=== PATIENT | female | born 1990 | race American Indian/Alaskan Native ===

== ENCOUNTER 2017-08-19 05:42 | Inpatient (IN) | payer MEDICAID ==
[2017-08-19] MEDS ORDERED: Sodium Chloride 0.9% 10 ML Syringe FLUSH PRN (08:00)
[2017-08-19] MEDS ORDERED: Nalbuphine 20 MG/1 ML Amp IVPUSH PRN (08:00)
[2017-08-19] MEDS ORDERED: Lactated Ringers 1,000 ML IV ONE (08:00)
[2017-08-19] MEDS ORDERED: Ondansetron 4 MG/2 ML SDV IVPUSH PRN ×2 (08:00→08:17)
[2017-08-19] MEDS ORDERED: ePHEDrine 50 MG/ML SDV IVPUSH PRN (08:17)
[2017-08-19] MEDS ORDERED: fentaNYL 100 MCG/2 ML SDV EPIDUR PRN (08:17)
[2017-08-19] MEDS ORDERED: diphenhydrAMINE 50 MG/ML SDV IVPUSH PRN (08:17)
--- NOTE | 2017-08-19 08:24 | PCM.PREANE ---
Preanesthetic Assessment - Anesthesia/Transfusion/Family Hx Anesthesia History: Prior Anesthesia Without Reaction Family History of Anesthesia Reaction: No Transfusion History: No Prior Transfusion(s) - Review of Systems General: No Symptoms Pulmonary: No Symptoms Cardiovascular: No Symptoms Gastrointestinal: No Symptoms Neurological: No Symptoms Other: Reports: Diabetes (Type II Diabetic. Insulin coveraged during . ) - Physical Assessment Pulse: 97 O2 Sat by Pulse Oximetry: 99 Respiratory Rate: 18 Blood Pressure: 126/79 Temperature: 36.5 C Height: 1.73 m Weight: 129.818 kg ASA Class: 2 Mental Status: Alert & Oriented x3 Airway Class: Mallampati = 2 Dentition: Reports: Normal Dentition Thyro-Mental Finger Breadths: 2 Mouth Opening Finger Breadths: 3 ROM/Head Extension: Full Lungs: Clear to Auscultation, Normal Respiratory Effort Cardiovascular: Regular Rate, Regular Rhythm - Allergies Allergies/Adverse Reactions: Allergies Allergy/AdvReac Type Severity Reaction Status Date / Time oranges Allergy Rash Uncoded 08/19/17 06:52 - Acknowledgements Anesthesia Type Planned: Epidural Pt an Appropriate Candidate for the Planned Anesthesia: Yes Alternatives and Risks of Anesthesia Discussed w Pt/Guardian: Yes Pt/Guardian Understands and Agrees with Anesthesia Plan: Yes PreAnesthesia Questionnaire - HOME MEDS Home Medications: Home Meds Insulin Aspart [NovoLOG] 100 unit SUBCUT ACBED 08/19/17 [History] Insulin Detemir [Levemir] 100 unit SUBCUT ASDIRECTED 08/19/17 [History] Pnv No.122/Iron/Folic Acid [ Multi Tablet] 1 each PO DAILY 08/19/17 [ History] - CURRENT (IN HOUSE) MEDS Current Meds: Current Medications Insulin Human Regular 100 unit (/ Sodium Chloride) 100 mls @ 12.9 mls/hr IV TITRATE JOSELIN; 0.1 UNITS/KG/HR PRN Reason: Protocol Lactated Ringer's (Ringers, Lactated) 1,000 mls @ 40 mls/hr IV ASDIRECTED JOSELIN Lactated Ringer's (Ringers, Lactated) 1,000 mls @ 999 mls/hr IV .BOLUS ONE Stop: 08/19/17 09:00 Oxytocin/Lactated Ringer's (Pitocin In Lr 10 Units/1,000 Ml) 10 unit in 1,000 mls @ 12 mls/hr IV TITRATE JOSELIN; 2 MUNITS/MIN PRN Reason: Protocol Misoprostol (Cytotec) 25 mcg VAG Q3H JOSELIN Nalbuphine HCl (Nubain) 10 mg IVPUSH Q2H PRN PRN Reason: Pain Ondansetron HCl (Zofran) 4 mg IVPUSH Q4H PRN PRN Reason: Nausea Sodium Chloride (Saline Flush) 10 ml FLUSH ASDIRECTED PRN PRN Reason: Keep Vein Open
[2017-08-19] MEDS ORDERED: Sodium Chloride 0.9% 1,000 ML ONE (08:30)
--- NOTE | 2017-08-19 08:43 | PCM.LDHP ---
L&D History of Present Illness - General Date of Service: 08/19/17 Admit Problem/Dx: Admission Diagnosis/Problem Admission Diagnosis/Problem 08/19/17 08:25 37-6/7 week intrauterine , type 2 diabetes with insulin-dependence Source of Information: Patient History Limitations: Reports: No Limitations - History of Present Illness Introduction:: Deisi is a 27-year-old 1 para 0 female was admitted for medical induction of labor because of type 2 diabetes. Sinus to deliver her at 38-0/7 weeks. Her final SYED is 09/03/2017 placing her at 37-6/7 weeks today start of her induction. Suspected date of delivery will be tomorrow. Her cervix is 1-2 cm, 80 % effaced, -3 station, spell presentation, soft, mid position. Patient has taken her dose of Levemir insulin-25 units subcutaneous last evening. She has not taking any insulin this a.m. She ate her regular diabetic breakfast this a.m.. Baby has been active. No contractions noted. course. Patient was seen early in the course of her care at 12 -3/7 weeks. She had regular checkups throughout the course of [facility]. She had seen a community nutrition educator and size changer becomes worse type 2 diabetes. She presently is controlled on in sling in the form of Levemir 25 units subcutaneous at at bedtime and 5 units of NovoLog at lunchtime and at dinnertime. With this her blood sugars have been reasonably well controlled. Patient's weight gain during the course of [place] was from 244 pounds 257 pounds for a 13 pound weight gain. Her vital signs were stable throughout the course. Her fundal height growth was appropriate. Ultrasounds however have been showing that the baby is somewhat ahead of schedule as far as weight is concerned. Hemoglobin A1c has also been mildly elevated during the course of the . The patient's been evaluated with weekly biophysical profiles which have been normal. Patient's quad screen was negative. The PDS on 05/06/2017 was normal. She is group B strep negative. Patient plans to breast-feed. A Trichomonas infection early in and was treated. She has had 1 UTI during the course of . Laboratory testing and shows her blood to be B+. Antibody screen is positive. First labs showed hemoglobin 12.5 and and platelets of 315, 000. She is rubella immune. RPR is nonreactive. Patient did have equal and culture of the urine early on and was treated for this. Hepatitis B surface antigen and HIV assays were both negative. Chlamydia and gonorrhea both negative. Second trimester hemoglobin was 11.4 g deciliter and patient was started on iron therapy. Her platelets are 281,000. Group B strep screen was negative. Allergies: oranges which causes itching and rash Medications: 1. Levemir insulin 25 units subcutaneous daily at bedtime 2. NovoLog insulins 5 units subcutaneous at lunchtime and at dinnertime 3. vitamins 1 by mouth daily Past medical history: Type 2 diabetes. Past surgical history: Prep 1. Cholecystectomy 2010 2. Oral surgery 2004 Family history: Mother is alive and well. She has adult-onset diabetes mellitus and has bipolar doing reasonably well with both. Father is secondary to an [place] at age 45. He also had adult-onset diabetes mellitus. 2 brothers with unknown medical history. One sister is alive. Suffers from posttraumatic stress disorder. Maternal grandmother is alive and well. Maternal grandfather is alive , has bipolar disease and has had some type of cancer which patient does not know of the type. Paternal grandmother secondary to competitions O adult-onset diabetes mellitus. Paternal grandfather , questionable cause. No , anesthesia, bleeding or blood clotting problems noted in the family. Social history.: Patient is single, lives in [place]. She is a homemaker. She has some high school education. is [employer]. She does not use any significant loss of alcohol, drugs or tobacco. She previously has history of smoking. Review of systems: Skin: Negative Cardiovascular: No chest pain or exercise intolerance Respiratory: No shortness of breath or infectious symptoms Breasts: Changes positive GI: Negative : Changes positive including increased fundal height. Baby is been active. Musca skeletal: Negative Neurological: Negative Physical exam: At first visit height was 5 feet 8 inches, body mass index of 36.5 and weight was 244. Last evaluation clinic her weight was 257 pounds. Blood pressure 132/82, heart rate is 151 and fundal height is 39+ centimeters. In general patient is well-developed, well-nourished, overweight female in no acute distress. She is alert and oriented 3 and appears to be a reasonable historian. Skin is warm dry without lesions. HEENT, neck and back within normal limits. Lungs are clear with good breath sounds. Cardiovascular exam shows regular and rhythm without murmurs. Breast exam deferred have been done at first visit and found to be normal. Abdomen is protuberant with with fundal height of 39+ centimeters, baby in vertex presentation by Hao maneuvers. Cervix is as described above. Extremities show minimal edema Neurological exam grossly within normal limits. - Related Data Allergies/Adverse Reactions: Allergies Allergy/AdvReac Type Severity Reaction Status Date / Time oranges Allergy Rash Uncoded 08/19/17 06:52 Home Medications: Home Meds Insulin Aspart [NovoLOG] 100 unit SUBCUT ACBED 08/19/17 [History] Insulin Detemir [Levemir] 100 unit SUBCUT ASDIRECTED 08/19/17 [History] Pnv No.122/Iron/Folic Acid [ Multi Tablet] 1 each PO DAILY 08/19/17 [ History] H&P Review of Systems - Review of Systems: Review Of Systems: See Below L&D Exam - Exam Exam: See Below - Vital Signs Vital Signs: Last Vital Signs Temp 36.5 C 08/19/17 08:23 Pulse 97 08/19/17 08:23 Resp 18 08/19/17 08:23 BP 126/79 08/19/17 08:23 Pulse Ox 99 08/19/17 08:23 Weight: 129.818 kg Problem List Initiated/Reviewed/Updated: Yes Orders Last 24hrs: Active Orders 24 hr Category Date Time Status Communication Order [RC] ASDIRECTED Care 08/19/17 08:00 Ordered Communication Order [RC] ASDIRECTED Care 08/19/17 08:00 Ordered Communication Order [RC] ASDIRECTED Care 08/19/17 08:00 Ordered Monitoring [RC] INTERMITTENT Care 08/19/17 08:00 Ordered Local Anesthetic Infusion Pump [RC] ASDIRECTED Care 08/19/17 08:08 Ordered Notify Provider [RC] ASDIRECTED Care 08/19/17 08:00 Ordered Notify Provider [RC] ASDIRECTED Care 08/19/17 08:17 Active PCEA Epidural [RC] ASDIRECTED Care 08/19/17 08:08 Ordered Peripheral IV Care [RC] . DIRECTED Care 08/19/17 08:00 Ordered Up ad Telma [RC] ASDIRECTED Care 08/19/17 08:00 Ordered Vaginal Exam [RC] ASDIRECTED Care 08/19/17 08:00 Ordered Vital Signs [RC] ASDIRECTED Care 08/19/17 08:00 Ordered Consistent Carbohydrate Diet [DIET] Diet 08/19/17 Breakfast Ordered CBC WITH AUTO DIFF [HEME] Routine Lab 08/19/17 08:00 Ordered Bupivacaine/fentaNYL/NS [fentaNYL/Bupivacaine/NS 2 MCG- Med 08/19/17 08:30 Active 0.125% 100 ML] 100 ml EPIDUR ASDIRECTED Lactated Ringers [Ringers, Lactated] 1,000 ml Med 08/19/17 08:00 Ordered IV .BOLUS Lactated Ringers [Ringers, Lactated] 1,000 ml Med 08/19/17 08:00 Ordered IV ASDIRECTED Misoprostol [Cytotec] Med 08/19/17 08:00 Ordered 25 mcg VAG Q3H Nalbuphine [Nubain] Med 08/19/17 08:00 Ordered 10 mg IVPUSH Q2H PRN Ondansetron [Zofran] Med 08/19/17 08:17 Active 4 mg IVPUSH ONETIME PRN Ondansetron [Zofran] Med 08/19/17 08:00 Ordered 4 mg IVPUSH Q4H PRN Oxytocin/Lactated Ringers [Pitocin in LR 10 Units/1,000 Med 08/19/17 08:00 Ordered ML] 10 unit in 1,000 ml IV TITRATE Regular Insulin,Human 100 Units in Normal Saline @ 0.1 Med 08/19/17 08:00 Ordered Units/KG/HR Insulin Regular, Human [HumuLIN R] 100 unit Sodium Chloride 0.9% [Normal Saline] 99 ml IV TITRATE Sodium Chloride 0.9% [Saline Flush] Med 08/19/17 08:00 Ordered 10 ml FLUSH ASDIRECTED PRN diphenhydrAMINE [Benadryl] Med 08/19/17 08:17 Active 25 mg IVPUSH Q6H PRN ePHEDrine [ePHEDrine Sulfate] Med 08/19/17 08:17 Active 5 mg IVPUSH ASDIRECTED PRN fentaNYL [Sublimaze] Med 08/19/17 08:17 Active 100 mcg EPIDUR ONETIME PRN Epidural Catheter Management [OM.PC] Routine Oth 08/19/17 08:00 Ordered Peripheral IV Insertion Adult [OM.PC] Routine Oth 08/19/17 08:00 Ordered Medication Orders Diphenhydramine HCl (Benadryl) 25 mg IVPUSH Q6H PRN PRN Reason: Pruritis Ephedrine Sulfate (Ephedrine Sulfate) 5 mg IVPUSH ASDIRECTED PRN PRN Reason: Hypotension Fentanyl (Sublimaze) 100 mcg EPIDUR ONETIME PRN PRN Reason: Pain Fentanyl/Bupivacaine HCl (Fentanyl/Bupivacaine/Ns 2 Mcg-0.125% 100 Ml) 100 ml EPIDUR ASDIRECTED JOSELIN Insulin Human Regular 100 unit (/ Sodium Chloride) 100 mls @ 12.9 mls/hr IV TITRATE JOSELIN; 0.1 UNITS/KG/HR PRN Reason: Protocol Lactated Ringer's (Ringers, Lactated) 1,000 mls @ 40 mls/hr IV ASDIRECTED JOSELIN Lactated Ringer's (Ringers, Lactated) 1,000 mls @ 999 mls/hr IV .BOLUS ONE Stop: 08/19/17 09:00 Oxytocin/Lactated Ringer's (Pitocin In Lr 10 Units/1,000 Ml) 10 unit in 1,000 mls @ 12 mls/hr IV TITRATE JOSELIN; 2 MUNITS/MIN PRN Reason: Protocol Misoprostol (Cytotec) 25 mcg VAG Q3H JOSELIN Stop: 08/19/17 14:01 Nalbuphine HCl (Nubain) 10 mg IVPUSH Q2H PRN PRN Reason: Pain Ondansetron HCl (Zofran) 4 mg IVPUSH Q4H PRN PRN Reason: Nausea Ondansetron HCl (Zofran) 4 mg IVPUSH ONETIME PRN PRN Reason: Nausea/Vomiting Sodium Chloride (Saline Flush) 10 ml FLUSH ASDIRECTED PRN PRN Reason: Keep Vein Open Assessment/Plan Comment:: Assessment: 1. 37-6/7 week intrauterine admitted for initiation of induction of labor. Plan to deliver on 08/20/2017 at 38-0/7 weeks. 2. Type 2 diabetes on sling. Reasonably well-controlled with instrument and diet. 3. testing has been normal. Baby is running somewhat ahead of schedule size kaba. 4. Screen negative 5. Patient plans to breast-feed. 6. Patient is okay with epidural in labor. Plan: 1. Patient is taken for routine and some last evening and is eating breakfast this morning. We'll place her on incision drip per printed protocol. 2. Epidural when necessary 3. Anticipate normal spontaneous vaginal delivery 4. Cervical ripening with Cytotec 3 doses and will initiate Pitocin. 5. Intermittent monitoring. 6. CBC.
[2017-08-19] MEDS: Sodium Chloride 0.9% 1,000 ML IV SCH ×2 (08:53→18:10)
[2017-08-19] MEDS: Misoprostol 25 MCG (1/4 of 100 MCG) Tab VAG SCH ×3 (08:59→15:01)
[2017-08-19] MEDS: Lactated Ringers 1,000 ML IV SCH (16:23)
[2017-08-19] MEDS: Oxytocin/Lactated Ringers 10 UNIT/1,000 ML BAG IV SCH (16:32)
[2017-08-19] MEDS ORDERED: hydrOXYzine HCl 50 MG Tab PO ONE ×2 (21:33→21:45)
--- NOTE | 2017-08-20 03:41 | PCM.SN ---
- Free Text/Narrative Note: Ghazala was evaluated at 0330 hrs. on 08/20/2017 and was found to be dilated 2 cm /60% effaced/very soft/-3 but well applied to the cervix/artificial rupture membranes was undertaken with resultant clear amniotic fluid. heart tones are reassuring with good accelerations and good variability. Contractions are approximately every 3 minutes. Pitocin was at 10 mU/m. This represents a slight change in cervix. Patient's spirits are relatively good. She has not used anything for pain control at this time. Blood sugars have been within normal limits. She continues on the insulin drip per protocol. Plan: Continue with present plan, increased Pitocin as not certain. Consider intrauterine pressure catheter if no significant change in the next 2 hours.
[2017-08-20] MEDS: Sodium Chloride 0.9% 1,000 ML IV SCH ×2 (04:16→14:38)
[2017-08-20] MEDS: Bupivacaine/fentaNYL/NS 100 ML Bag EPIDUR SCH ×2 (08:52→16:25)
[2017-08-20] MEDS: Lactated Ringers 1,000 ML IV SCH (11:54)
[2017-08-20] MEDS: Oxytocin/Lactated Ringers 10 UNIT/1,000 ML BAG IV SCH (12:55)
[2017-08-20] MEDS ORDERED: Bupivacaine 0.25% 10 ML SDV ONE (14:00)
[2017-08-20] MEDS ORDERED: Oxytocin 10 Units/1 ML SDV ONE ×2 (14:19→17:49)
[2017-08-20] MEDS ORDERED: Oxytocin/Lactated Ringers 20 UNIT/1,000 ML BAG IV SCH (15:00)
[2017-08-20] MEDS ORDERED: Bupivacaine 0.5% 30 ML SDV ONE (17:39)
[2017-08-20] MEDS ORDERED: Ondansetron 4 MG/2 ML SDV ONE (17:49)
[2017-08-20] MEDS ORDERED: Sodium Bicarbonate 8.4% 50 MEQ/50 ML SDV ONE (17:49)
[2017-08-20] MEDS ORDERED: ceFAZolin 1 GM Vial ONE (17:49)
[2017-08-20] MEDS ORDERED: Lidocaine 2% with EPINEPHrine 1:200,000 20 ML SDV ONE (17:49)
[2017-08-20] MEDS ORDERED: Citric Acid/Sodium Citrate Solution 30 ML Cup ONE (17:53)
[2017-08-20] MEDS ORDERED: Metoclopramide 10 MG/2 ML SDV ONE (17:53)
--- NOTE | 2017-08-20 18:02 | PCM.SN ---
- Free Text/Narrative Note: Labor has progressed to a cervical dilation of 5/85/-3/mid/soft cervical status despite objectively monitored adequate labor. No cervical change noted in the last four hours. Rec: primary [id number], benefits d/w patient. She appears to understand and wishes to proceed. Consent is signed.
[2017-08-20] MEDS ORDERED: fentaNYL 100 MCG/2 ML SDV IVPUSH PRN (18:35)
[2017-08-20] MEDS ORDERED: diphenhydrAMINE 50 MG/ML SDV IVPUSH PRN ×2 (18:35→20:21)
[2017-08-20] MEDS ORDERED: Meperidine PF 50 MG/ML Syringe IVPUSH PRN (18:35)
[2017-08-20] MEDS ORDERED: Ondansetron 4 MG/2 ML SDV IVPUSH PRN (18:35)
[2017-08-20] MEDS ORDERED: Morphine PF 1 MG/ML Amp ONE (18:40)
[2017-08-20] MEDS ORDERED: Ketorolac 30 MG/ML SDV ONE (18:55)
--- NOTE | 2017-08-20 19:01 | PCM.POSTAN ---
POST ANESTHESIA ASSESSMENT - MENTAL STATUS Mental Status: Alert, Oriented - VITAL SIGNS Pulse Rate: 91 SaO2: 100 Resp Rate: 16 Blood Pressure: 125/71 Temperature: 37.1 C - RESPIRATORY Respiratory Status: Respiratory Rate WNL, Airway Patent, O2 Saturation Stable - CARDIOVASCULAR CV Status: Pulse Rate WNL, Blood Pressure Stable - GASTROINTESTINAL GI Status: No Symptoms - PAIN Pain Score: 0 - POST OP HYDRATION Hydration Status: Adequate & Stable
--- NOTE | 2017-08-20 19:07 | PCM.OPNOTE ---
- General Post-Op/Procedure Note Date of Surgery/Procedure: 08/20/17 Operative Procedure(s): Primary lower uterine segment transverse section through Pfannenstiel skin incision Findings: baby was in vertex presentation, amniotic fluid was clear. Ovaries and tubes were essentially normal in appearance Pre Op Diagnosis: 30-0/7 week IUP, adult-onset diabetesinsulin-dependent controlled, failure to progress Post-Op Diagnosis: Same with delivery of an 8 lbs. 7 oz. male with Apgars of 9 and 9 at 1818 hrs. on 08/20/2017 Anesthesia Technique: Epidural Other Anesthesia Type: Marcaine 0.5%local20 mL total Primary Surgeon: Robles Andres Secondary Surgeon: Abdi Apple Anesthesia Provider: Ivan Haddad Reason Critical Care Paramedic Was Necessary: Retraction, patient safety, quality of care Role of Critical Care Paramedic: retraction Fluid Replacement, Intraop: 900 Output, Urine Amount: 100 EBL in mLs: 500 Drain/Tube Comments:: indwelling bladder catheter Complications: None Condition: Good Free Text/Narrative:: Intake & Output 08/20/17 08/20/17 08/20/17 06:59 14:59 22:59 Intake Total 1000 Balance 1000 surgery duration: 20 minutes Procedure: Procedure: Patient was transferred to the room and placed in a sitting position. Spinal anesthesia was administered. After confirmation of adequate anesthesia patient was placed in a supine position with a wedge under her right side to facilitate left lateral positioning. The patient was prepped and draped in usual fashion after Davila catheter was already placed . The anesthetic was checked and found to be adequate. 20 mL of Marcaine 0.5% was injected locally in the Pfannenstiel incision site. The Pfannenstiel skin incision was then made carried down to skin subcutaneous and fascial layers. The fascia was then undermined superiorly and inferiorly to allow for adequate operating room the recti muscles midline and preperitoneal fat was bluntly dissected. Peritoneal cavity was entered longitudinally. The vesicouterine peritoneum was then incised transversely and bladder flap was developed. Myometrium was incised transversely to the level of the amniotic sac. This incision was extended bilaterally in a blunt fashion. The amniotic sac was then ruptured resulting clear amniotic fluid. A hand is placed in the low uterine segment and the baby's head was brought forth through the incision. The baby was completely delivered using fundal pressure in a routine fashion. The nose and mouth were bulb suctioned. Baby's cord was clamped x2 cut and baby was handed off to attending senior clinical research associate Dr Johnson. Placenta was expressed after cord blood was obtained. Uterus was then exteriorized to allow for easier closure. The cervix was assessed and found to be dilated adequately to allow egress of blood. The uterus was closed in 2 layers. The first layer a running locked suture of 0 Monocryl, the second layer a running locked vertical mattress suture of 0 Monocryl. [id number] suture was placed at the left incision to control 1 bleeder. Hemostasis confirmed at this time. Sponge instrument needle counts are correct. The uterus was returned to the abdominal cavity and lateral gutters were cleared of blood. Once again sponge needle counts are correct. The anterior abdominal wall was closed with a #1 PDS suture from angle to angle. The subcutaneous area was found to be free of any bleeders. interrupted sutures of 3-0 Monocryl were used to reapproximate the subcutaneous layer.Skin was closed with a running subcuticular stitch of 3-0 Monocryl in a vertical mattress suture fashion using a Robbin needle. Prineo mesh /glue was then applied to further approximate the incision. It should be noted that patient received 2 g of Ancef preoperatively for infection prophylaxis and had Pitocin infused after delivery of the placenta to facilitate uterine contraction. She also had sequential compression stockings in place for DVT prophylaxis. Patient was discharged from the operating room in satisfactory condition.
[2017-08-20] MEDS ORDERED: Ibuprofen 800 MG Tab PO SCH (20:21)
[2017-08-20] MEDS ORDERED: ePHEDrine 50 MG/ML SDV IVPUSH PRN (20:21)
[2017-08-20] MEDS ORDERED: Docusate Sodium 100 MG Cap PO PRN (20:21)
[2017-08-20] MEDS ORDERED: Lanolin 100% Cream 7 GM Tube TOP PRN (20:21)
[2017-08-20] MEDS ORDERED: Dextrose 5%-Lactated Ringers 1,000 ML IV SCH (20:21)
[2017-08-20] MEDS ORDERED: Naloxone 0.4 MG/ML SDV IVPUSH PRN (20:21)
[2017-08-20] MEDS: Simethicone 80 MG Tab.Chew PO SCH (23:35)
[2017-08-20] MEDS: Insulin Detemir 100 Units/ML 3 ML Pen SUBCUT SCH (23:47)
[2017-08-21] MEDS: Ibuprofen 800 MG Tab PO SCH ×3 (00:52→16:30)
[2017-08-21] MEDS: Simethicone 80 MG Tab.Chew PO SCH ×4 (08:01→21:18)
[2017-08-21] MEDS: Prenatal Multivitamin with Calcium/Folic Acid/Iron Tab PO SCH (08:01)
--- NOTE | 2017-08-21 10:32 | PCM.SN ---
- Free Text/Narrative Note: Post Operative Progress Note POD # 1 Subjective: Doing well overall. Ambulating without difficulty. Lochia minimal. Full ear removed this morning with drainage of urine. Patient has not voided since removal. Not yet passing flatus. Tolerating carb control diet. Pain controlled with oral medications. Breast feeding with minimal difficulty. Objective: Vitals: Vital Signs - 24 hr 08/20/17 08/20/17 08/20/17 18:48 19:00 19:01 Temperature 37.1 C Temperature [ 37.1 C Temporal] Pulse, 91 Peripheral Pulse, Peripheral [ Pulse Oximetry] Respiratory 16 14 16 Rate Blood Pressure 125/71 Blood Pressure 125/71 126/69 [Right Upper Arm] O2 Sat by Pulse 100 97 100 Oximetry O2 Sat by Pulse 100 Oximetry [Room Air] 08/20/17 08/20/17 08/20/17 19:15 19:30 20:20 Temperature Temperature [ 36.2 C Temporal] Pulse, Peripheral Pulse, 95 Peripheral [ Pulse Oximetry] Respiratory 16 16 16 Rate Blood Pressure Blood Pressure 128/66 130/71 134/69 [Right Upper Arm] O2 Sat by Pulse 97 98 97 Oximetry O2 Sat by Pulse Oximetry [Room Air] 08/20/17 08/20/17 08/20/17 20:45 21:45 22:02 Temperature Temperature [ 36.5 C 36.4 C Temporal] Pulse, 102 H Peripheral Pulse, 106 H 98 Peripheral [ Pulse Oximetry] Respiratory 16 16 Rate Blood Pressure Blood Pressure 139/84 128/70 [Right Upper Arm] O2 Sat by Pulse 96 96 96 Oximetry O2 Sat by Pulse Oximetry [Room Air] 08/20/17 08/21/17 08/21/17 22:45 00:30 04:47 Temperature Temperature [ 36.6 C 36.7 C Temporal] Pulse, 91 Peripheral Pulse, 98 95 Peripheral [ Pulse Oximetry] Respiratory 16 16 16 Rate Blood Pressure 128/73 Blood Pressure 122/70 133/70 [Right Upper Arm] O2 Sat by Pulse 95 98 98 Oximetry O2 Sat by Pulse Oximetry [Room Air] 08/21/17 08/21/17 08/21/17 05:26 06:36 08:33 Temperature 37.0 C Temperature [ Temporal] Pulse, 94 Peripheral Pulse, Peripheral [ Pulse Oximetry] Respiratory 18 18 16 Rate Blood Pressure 121/67 Blood Pressure [Right Upper Arm] O2 Sat by Pulse 98 98 97 Oximetry O2 Sat by Pulse Oximetry [Room Air] 08/21/17 09:00 Temperature Temperature [ Temporal] Pulse, Peripheral Pulse, Peripheral [ Pulse Oximetry] Respiratory 16 Rate Blood Pressure Blood Pressure [Right Upper Arm] O2 Sat by Pulse 98 Oximetry O2 Sat by Pulse Oximetry [Room Air] Physical Exam General: Alert and oriented, no acute distress Lungs: Clear to auscultation bilaterally Heart: Regular rate and rhythm Abdomen: Soft, minimal appropriate tenderness, non-distended, fundus midline, nontender and below the umbilicus Incision: Clean, dry and intact, no erythema, bleeding or drainage, Prineo dressing in place Extremities: 2+ edema in bilateral lower extremities to knees Labs: Laboratory Results - last 24 hr 08/19/17 08/20/17 08/20/17 Range/Units 08:27 11:03 12:01 WBC (3.98-10.04) K/mm3 RBC (3.98-5.22) M/mm3 Hgb (11.2-15.7) gm/L Hct (34.1-44.9) % MCV (79.4-94.8) fl MCH (25.6-32.2) pg MCHC (32.2-35.5) g/dl RDW Std Deviation (36.4-46.3) fL Plt Count (182-369) K/mm3 MPV (9.4-12.3) fl Neut % (Auto) (34.0-71.1) % Lymph % (Auto) (19.3-51.7) % [place] % (Auto) (4.7-12.5) % Eos % (Auto) (0.7-5.8) Baso % (Auto) (0.1-1.2) % Neut # (Auto) (1.56-6.13) K/mm3 Lymph # (Auto) (1.18-3.74) K/mm3 [place] # (Auto) (0.24-0.36) K/mm3 Eos # (Auto) (0.04-0.36) K/mm3 Baso # (Auto) (0.01-0.08) K/mm3 POC Glucose 166 H 141 H (70-105) mg/dL Blood Type B POSITIVE Gel Antibody Screen Negative 08/20/17 08/20/17 08/20/17 Range/Units 12:57 13:53 14:59 WBC (3.98-10.04) K/mm3 RBC (3.98-5.22) M/mm3 Hgb (11.2-15.7) gm/L Hct (34.1-44.9) % MCV (79.4-94.8) fl MCH (25.6-32.2) pg MCHC (32.2-35.5) g/dl RDW Std Deviation (36.4-46.3) fL Plt Count (182-369) K/mm3 MPV (9.4-12.3) fl Neut % (Auto) (34.0-71.1) % Lymph % (Auto) (19.3-51.7) % [place] % (Auto) (4.7-12.5) % Eos % (Auto) (0.7-5.8) Baso % (Auto) (0.1-1.2) % Neut # (Auto) (1.56-6.13) K/mm3 Lymph # (Auto) (1.18-3.74) K/mm3 [place] # (Auto) (0.24-0.36) K/mm3 Eos # (Auto) (0.04-0.36) K/mm3 Baso # (Auto) (0.01-0.08) K/mm3 POC Glucose 106 H 84 76 (70-105) mg/dL Blood Type Gel Antibody Screen 08/20/17 08/20/17 08/20/17 Range/Units 15:57 17:15 18:58 WBC (3.98-10.04) K/mm3 RBC (3.98-5.22) M/mm3 Hgb (11.2-15.7) gm/L Hct (34.1-44.9) % MCV (79.4-94.8) fl MCH (25.6-32.2) pg MCHC (32.2-35.5) g/dl RDW Std Deviation (36.4-46.3) fL Plt Count (182-369) K/mm3 MPV (9.4-12.3) fl Neut % (Auto) (34.0-71.1) % Lymph % (Auto) (19.3-51.7) % [place] % (Auto) (4.7-12.5) % Eos % (Auto) (0.7-5.8) Baso % (Auto) (0.1-1.2) % Neut # (Auto) (1.56-6.13) K/mm3 Lymph # (Auto) (1.18-3.74) K/mm3 [place] # (Auto) (0.24-0.36) K/mm3 Eos # (Auto) (0.04-0.36) K/mm3 Baso # (Auto) (0.01-0.08) K/mm3 POC Glucose 92 107 H 133 H (70-105) mg/dL Blood Type Gel Antibody Screen 08/20/17 08/21/17 08/21/17 Range/Units 21:55 00:33 06:10 WBC 10.32 H (3.98-10.04) K/mm3 RBC 3.38 L (3.98-5.22) M/mm3 Hgb 9.3 L (11.2-15.7) gm/L Hct 28.5 L (34.1-44.9) % MCV 84.3 (79.4-94.8) fl MCH 27.5 (25.6-32.2) pg MCHC 32.6 (32.2-35.5) g/dl RDW Std Deviation 40.2 (36.4-46.3) fL Plt Count 248 (182-369) K/mm3 MPV 10.6 (9.4-12.3) fl Neut % (Auto) 74.8 H (34.0-71.1) % Lymph % (Auto) 13.2 L (19.3-51.7) % [place] % (Auto) 10.3 (4.7-12.5) % Eos % (Auto) 1.3 (0.7-5.8) Baso % (Auto) 0.2 (0.1-1.2) % Neut # (Auto) 7.73 H (1.56-6.13) K/mm3 Lymph # (Auto) 1.36 (1.18-3.74) K/mm3 [place] # (Auto) 1.06 H (0.24-0.36) K/mm3 Eos # (Auto) 0.13 (0.04-0.36) K/mm3 Baso # (Auto) 0.02 (0.01-0.08) K/mm3 POC Glucose 117 H 110 H (70-105) mg/dL Blood Type Gel Antibody Screen 08/21/17 Range/Units 06:27 WBC (3.98-10.04) K/mm3 RBC (3.98-5.22) M/mm3 Hgb (11.2-15.7) gm/L Hct (34.1-44.9) % MCV (79.4-94.8) fl MCH (25.6-32.2) pg MCHC (32.2-35.5) g/dl RDW Std Deviation (36.4-46.3) fL Plt Count (182-369) K/mm3 MPV (9.4-12.3) fl Neut % (Auto) (34.0-71.1) % Lymph % (Auto) (19.3-51.7) % [place] % (Auto) (4.7-12.5) % Eos % (Auto) (0.7-5.8) Baso % (Auto) (0.1-1.2) % Neut # (Auto) (1.56-6.13) K/mm3 Lymph # (Auto) (1.18-3.74) K/mm3 [place] # (Auto) (0.24-0.36) K/mm3 Eos # (Auto) (0.04-0.36) K/mm3 Baso # (Auto) (0.01-0.08) K/mm3 POC Glucose 90 (70-105) mg/dL Blood Type Gel Antibody Screen ASSESSMENT: 27-year-old female G 1 P 1001 s/p primary section POD #1 for failure to progress, complicated by type 2 diabetes controlled with insulin PLAN: Doing well Breast feeding with minimal difficulty. Assist as needed Incision healing well. Continue to keep clean and dry. Lochia minimal. Continue to monitor for appropriate lochia. Large an expected drop in hemoglobin from 11.9 on admission to 9.3 this morning. Vital signs overall reassuring but we will recheck CBC at 1300 today to ensure stable hemoglobin. Continue routine post-operative care Continue carb control diet and monitor fingerstick blood sugars fasting in a.m. and 2 hours post prandial. We will continue Levemir insulin 12 units subcutaneous daily at bedtime for control of her blood sugars. Patient was on low-dose short acting insulin with lunch and supper meals and this has been discontinued. Fasting blood sugar this morning was 90 which is good control. We will continue to monitor during her admission. Anticipate discharge home tomorrow Abdi Apple MD 10:24 AM 08/21/2017
[2017-08-21] MEDS: Insulin Detemir 100 Units/ML 3 ML Pen SUBCUT SCH (21:30)
[2017-08-22] MEDS: Acetaminophen/oxyCODONE 325-5 MG Tab PO PRN ×2 (00:22→04:39)
[2017-08-22] MEDS: Ibuprofen 800 MG Tab PO SCH ×2 (01:17→08:12)
[2017-08-22] MEDS: Prenatal Multivitamin with Calcium/Folic Acid/Iron Tab PO SCH (08:11)
[2017-08-22] MEDS: Simethicone 80 MG Tab.Chew PO SCH (08:11)
--- NOTE | 2017-08-22 08:24 | PCM.SN ---
- Free Text/Narrative Note: Post Operative Progress Note POD # 2 Subjective: Doing well overall. Ambulating without difficulty. Lochia minimal. Voiding without difficulty. Patient has not voided since removal. Passing flatus and had a BM. Tolerating carb control diet. Pain controlled with oral medications. Bottle feeding with minimal difficulty after change in formula. Objective: Vitals: Vital Signs - 24 hr 08/21/17 08/21/17 08/21/17 09:00 09:22 10:00 Temperature Pulse, 95 Peripheral Respiratory 16 16 Rate Blood Pressure O2 Sat by Pulse 98 99 99 Oximetry 08/21/17 08/21/17 08/21/17 10:55 12:00 13:00 Temperature Pulse, Peripheral Respiratory 16 16 16 Rate Blood Pressure O2 Sat by Pulse 99 99 99 Oximetry 08/21/17 08/21/17 08/21/17 14:00 15:00 16:00 Temperature Pulse, Peripheral Respiratory 16 16 16 Rate Blood Pressure O2 Sat by Pulse 100 99 97 Oximetry 08/21/17 08/21/17 08/22/17 17:00 19:41 03:06 Temperature 36.7 C 36.7 C Pulse, 102 H 103 H Peripheral Respiratory 16 18 18 Rate Blood Pressure 134/78 115/90 O2 Sat by Pulse 99 99 95 Oximetry Physical Exam General: Alert and oriented, no acute distress Lungs: Clear to auscultation bilaterally Heart: Regular rate and rhythm Abdomen: Soft, minimal appropriate tenderness, non-distended, fundus midline, nontender and below the umbilicus Incision: Clean, dry and intact, no erythema, bleeding or drainage, Prineo dressing in place Extremities: 2+ edema in bilateral lower extremities to knees Labs: Laboratory Results - last 24 hr 08/21/17 08/21/17 08/21/17 Range/Units 10:50 13:00 15:23 WBC 10.14 H (3.98-10.04) K/mm3 RBC 3.33 L (3.98-5.22) M/mm3 Hgb 9.2 L (11.2-15.7) gm/L Hct 28.3 L (34.1-44.9) % MCV 85.0 (79.4-94.8) fl MCH 27.6 (25.6-32.2) pg MCHC 32.5 (32.2-35.5) g/dl RDW Std Deviation 41.2 (36.4-46.3) fL Plt Count 247 (182-369) K/mm3 MPV 10.1 (9.4-12.3) fl POC Glucose 136 H 114 H (70-105) mg/dL 08/21/17 08/22/17 Range/Units 21:21 05:27 WBC (3.98-10.04) K/mm3 RBC (3.98-5.22) M/mm3 Hgb (11.2-15.7) gm/L Hct (34.1-44.9) % MCV (79.4-94.8) fl MCH (25.6-32.2) pg MCHC (32.2-35.5) g/dl RDW Std Deviation (36.4-46.3) fL Plt Count (182-369) K/mm3 MPV (9.4-12.3) fl POC Glucose 162 H 109 H (70-105) mg/dL ASSESSMENT: 27-year-old female G 1 P 1001 s/p primary section POD #2 for failure to progress, complicated by type 2 diabetes controlled with insulin PLAN: Doing well Bottle feeding with minimal difficulty after change of formula. Assist as needed Incision healing well. Continue to keep clean and dry. Lochia minimal. Continue to monitor for appropriate lochia. Larger than expected drop in hemoglobin from 11.9 on admission to 9.3 in AM of POD #1, repeat CBC in afternoon of POD #1 was 9.2 and felt to be stable. Vital signs overall reassuring. Patient to start ferrous sulfate 325 mg twice a day with meals to help replace blood loss. Continue routine post-operative care Continue carb control diet and monitor fingerstick blood sugars fasting in a.m. and 2 hours post prandial. We will continue Levemir insulin 12 units subcutaneous daily at bedtime for control of her blood sugars. Patient was on low-dose short acting insulin with lunch and supper meals and this has been discontinued. Fasting blood sugar this morning was 90 which is good control. We will continue to monitor during her admission. Anticipate discharge home today Patient to follow-up with Dr. Andres in 2 weeks for routine postop appointment. Patient to follow-up with her PCP for continued management of her type 2 diabetes. Abdi Apple MD 8:23 AM 08/22/2017
--- NOTE | 2017-08-22 08:39 | PCM.DCSUM1 ---
Discharge Summary - Hospital Course Free Text/Narrative:: Procedure: Patient was transferred to the room and placed in a sitting position. Spinal anesthesia was administered. After confirmation of adequate anesthesia patient was placed in a supine position with a wedge under her right side to facilitate left lateral positioning. The patient was prepped and draped in usual fashion after Davila catheter was already placed . The anesthetic was checked and found to be adequate. 20 mL of Marcaine 0.5% was injected locally in the Pfannenstiel incision site. The Pfannenstiel skin incision was then made carried down to skin subcutaneous and fascial layers. The fascia was then undermined superiorly and inferiorly to allow for adequate operating room the recti muscles midline and preperitoneal fat was bluntly dissected. Peritoneal cavity was entered longitudinally. The vesicouterine peritoneum was then incised transversely and bladder flap was developed. Myometrium was incised transversely to the level of the amniotic sac. This incision was extended bilaterally in a blunt fashion. The amniotic sac was then ruptured resulting clear amniotic fluid. A hand is placed in the low uterine segment and the baby's head was brought forth through the incision. The baby was completely delivered using fundal pressure in a routine fashion. The nose and mouth were bulb suctioned. Baby's cord was clamped x2 cut and baby was handed off to attending admissions nurse Dr Johnson. Placenta was expressed after cord blood was obtained. Uterus was then exteriorized to allow for easier closure. The cervix was assessed and found to be dilated adequately to allow egress of blood. The uterus was closed in 2 layers. The first layer a running locked suture of 0 Monocryl, the second layer a running locked vertical mattress suture of 0 Monocryl. Zjeawa-ck-dzhui suture was placed at the left incision to control 1 bleeder. Hemostasis confirmed at this time. Sponge instrument needle counts are correct. The uterus was returned to the abdominal cavity and lateral gutters were cleared of blood. Once again sponge needle counts are correct. The anterior abdominal wall was closed with a #1 PDS suture from angle to angle. The subcutaneous area was found to be free of any bleeders. interrupted sutures of 3-0 Monocryl were used to reapproximate the subcutaneous layer.Skin was closed with a running subcuticular stitch of 3-0 Monocryl in a vertical mattress suture fashion using a Robbin needle. Prineo mesh /glue was then applied to further approximate the incision. It should be noted that patient received 2 g of Ancef preoperatively for infection prophylaxis and had Pitocin infused after delivery of the placenta to facilitate uterine contraction. She also had sequential compression stockings in place for DVT prophylaxis. Patient was discharged from the operating room in satisfactory condition. HPI Initial Comments: Procedure: Patient was transferred to the room and placed in a sitting position. Spinal anesthesia was administered. After confirmation of adequate anesthesia patient was placed in a supine position with a wedge under her right side to facilitate left lateral positioning. The patient was prepped and draped in usual fashion after Davila catheter was already placed . The anesthetic was checked and found to be adequate. 20 mL of Marcaine 0.5% was injected locally in the Pfannenstiel incision site. The Pfannenstiel skin incision was then made carried down to skin subcutaneous and fascial layers. The fascia was then undermined superiorly and inferiorly to allow for adequate operating room the recti muscles midline and preperitoneal fat was bluntly dissected. Peritoneal cavity was entered longitudinally. The vesicouterine peritoneum was then incised transversely and bladder flap was developed. Myometrium was incised transversely to the level of the amniotic sac. This incision was extended bilaterally in a blunt fashion. The amniotic sac was then ruptured resulting clear amniotic fluid. A hand is placed in the low uterine segment and the baby's head was brought forth through the incision. The baby was completely delivered using fundal pressure in a routine fashion. The nose and mouth were bulb suctioned. Baby's cord was clamped x2 cut and baby was handed off to attending admissions nurse Dr Johnson. Placenta was expressed after cord blood was obtained. Uterus was then exteriorized to allow for easier closure. The cervix was assessed and found to be dilated adequately to allow egress of blood. The uterus was closed in 2 layers. The first layer a running locked suture of 0 Monocryl, the second layer a running locked vertical mattress suture of 0 Monocryl. Fslunu-xe-bfuic suture was placed at the left incision to control 1 bleeder. Hemostasis confirmed at this time. Sponge instrument needle counts are correct. The uterus was returned to the abdominal cavity and lateral gutters were cleared of blood. Once again sponge needle counts are correct. The anterior abdominal wall was closed with a #1 PDS suture from angle to angle. The subcutaneous area was found to be free of any bleeders. interrupted sutures of 3-0 Monocryl were used to reapproximate the subcutaneous layer.Skin was closed with a running subcuticular stitch of 3-0 Monocryl in a vertical mattress suture fashion using a Robbin needle. Prineo mesh /glue was then applied to further approximate the incision. It should be noted that patient received 2 g of Ancef preoperatively for infection prophylaxis and had Pitocin infused after delivery of the placenta to facilitate uterine contraction. She also had sequential compression stockings in place for DVT prophylaxis. Patient was discharged from the operating room in satisfactory condition. Brief History: Procedure: Patient was transferred to the room and placed in a sitting position. Spinal anesthesia was administered. After confirmation of adequate anesthesia patient was placed in a supine position with a wedge under her right side to facilitate left lateral positioning. The patient was prepped and draped in usual fashion after Davila catheter was already placed . The anesthetic was checked and found to be adequate. 20 mL of Marcaine 0.5% was injected locally in the Pfannenstiel incision site. The Pfannenstiel skin incision was then made carried down to skin subcutaneous and fascial layers. The fascia was then undermined superiorly and inferiorly to allow for adequate operating room the recti muscles midline and preperitoneal fat was bluntly dissected. Peritoneal cavity was entered longitudinally. The vesicouterine peritoneum was then incised transversely and bladder flap was developed. Myometrium was incised transversely to the level of the amniotic sac. This incision was extended bilaterally in a blunt fashion. The amniotic sac was then ruptured resulting clear amniotic fluid. A hand is placed in the low uterine segment and the baby's head was brought forth through the incision. The baby was completely delivered using fundal pressure in a routine fashion. The nose and mouth were bulb suctioned. Baby's cord was clamped x2 cut and baby was handed off to attending admissions nurse Dr Johnson. Placenta was expressed after cord blood was obtained. Uterus was then exteriorized to allow for easier closure. The cervix was assessed and found to be dilated adequately to allow egress of blood. The uterus was closed in 2 layers. The first layer a running locked suture of 0 Monocryl, the second layer a running locked vertical mattress suture of 0 Monocryl. Quycdl-nh-ftfua suture was placed at the left incision to control 1 bleeder. Hemostasis confirmed at this time. Sponge instrument needle counts are correct. The uterus was returned to the abdominal cavity and lateral gutters were cleared of blood. Once again sponge needle counts are correct. The anterior abdominal wall was closed with a #1 PDS suture from angle to angle. The subcutaneous area was found to be free of any bleeders. interrupted sutures of 3-0 Monocryl were used to reapproximate the subcutaneous layer.Skin was closed with a running subcuticular stitch of 3- 0 Monocryl in a vertical mattress suture fashion using a Robbin needle. Prineo mesh/glue was then applied to further approximate the incision. It should be noted that patient received 2 g of Ancef preoperatively for infection prophylaxis and had Pitocin infused after delivery of the placenta to facilitate uterine contraction. She also had sequential compression stockings in place for DVT prophylaxis. Patient was discharged from the operating room in satisfactory condition. - Discharge Data Discharge Date: 08/22/17 Discharge Disposition: Home, Self-Care 01 Condition: Good - Discharge Diagnosis/Problem(s) (1) 38 weeks gestation of SNOMED Code(s): 06290697 ICD Code: Z3A.38 - 38 WEEKS GESTATION OF Status: Acute Current Visit: Yes (2) Type 2 diabetes mellitus affecting in third trimester, antepartum SNOMED Code(s): 849760892, 238831299 ICD Code: O24.113 - PRE-EXISTING TYPE 2 DIABETES, IN , THIRD TRIMESTER Status: Acute Current Visit: Yes (3) Failure to progress in labor, delivered, current hospitalization SNOMED Code(s): 347878614 ICD Code: O62.2 - OTHER UTERINE INERTIA Status: Acute Current Visit: Yes (4) Delivery by section using transverse incision of lower segment of uterus SNOMED Code(s): 526742139 ICD Code: O82 - ENCOUNTER FOR DELIVERY WITHOUT INDICATION Status: Acute Current Visit: Yes - Patient Summary/Data Operative Procedure(s) Performed: Primary lower uterine segment transverse section through Pfannenstiel skin incision Complications: None Consults: None Hospital Course: Patient was admitted for induction of labor secondary to uncontrolled type 2 diabetes on insulin. Induction of labor was initiated with Cytotec which she received 3 doses. She was started on an insulin drip for control of her blood sugars while she is in labor. She progressed to 2 cm dilated and had artificial rupture membranes with clear fluid. She continued to have induction of labor with Pitocin and progressed 5 cm dilated. She had failure to progress past 5 cm dilated over the course of approximately 6 hours on day of induction # 2. Decision was made to proceed with primary section for failure to progress with arrest of dilation at 5 cm. On 08/20/2017 she had a primary low transverse section that was overall uncomplicated. Please see operative note for full details. Her home insulin dose of Levemir was decreased to 12 units at bedtime on postoperative day #0 and her insulin with meals was discontinued. On postoperative day #1 patient was doing well in meeting postoperative milestones. Her pain was able to be controlled with oral medications. She was ambulating without difficulty. She was able to void after the Davila catheter was removed and the morning of postoperative day #1. She was passing flatus on post op day #1. She was bottlefeeding with small amount of difficulty where the infant would throw up the formula. In the morning of postoperative day #1 her hemoglobin dropped to 9.3 and a repeat CBC was performed in the afternoon of postoperative day #1. The repeat hemoglobin was 9.2 and this is felt to be stable. Her lochia was minimal on postop day # 1. On postoperative day #2 she continued to be doing well. Her pain continued to be able to be controlled with oral medications. She was emulating without difficulty. She was voiding without difficulty. She had a bowel movement and continued to pass flatus. She was bottlefeeding with the infant with a different formula and this was working well for the infant. She desired to be discharged home in the morning of postoperative day #2. Patient will follow-up with Dr. Andres in 2 weeks for her routine postop check. She will follow up with her PCP for continued management of her type 2 diabetes. - Patient Instructions Diet: Diabetic Diet Activity: As Tolerated, No Lifting Over 20 Pounds Activity, Other: Nothing in the vagina for 6 weeks. Driving: Do Not Drive (While on narcotic medications) Showering/Bathing: May Shower, No Tub Bathing/Swimming (For 2 weeks) Wound/Incision Care: Keep Operative Site/Wound Site Clean and Dry Notify Provider of: Fever, Increased Pain, Swelling and Redness, Drainage, Nausea and/or Vomiting - Discharge Plan Prescriptions/Med Rec: Acetaminophen/oxyCODONE [Percocet 325-5 MG] 1 - 2 tab PO Q6H PRN #20 tablet PRN Reason: Pain Ferrous Sulfate 325 mg PO BID #60 tablet Home Medications: Home Meds Insulin Aspart [NovoLOG] 100 unit SUBCUT ACBED 08/19/17 [History] Insulin Detemir [Levemir] 100 unit SUBCUT ASDIRECTED 08/19/17 [History] Pnv No.122/Iron/Folic Acid [ Multi Tablet] 1 each PO DAILY 08/19/17 [ History] Acetaminophen/oxyCODONE [Percocet 325-5 MG] 1 - 2 tab PO Q6H PRN #20 tablet [Rx] Docusate Sodium [Colace] 100 mg PO Q12H PRN cap 08/22/17 [Rx] Ferrous Sulfate 325 mg PO BID #60 tablet 08/22/17 [Rx] Ibuprofen [IJD: Ibuprofen] 800 mg PO Q8H PRN #60 tablet 08/22/17 [Rx] Insulin Detemir [Levemir] 12 unit SUBCUT BEDTIME pen 08/22/17 [Rx] Lanolin [Lansinoh HPA] 1 applic TOP ASDIRECTED PRN tube 08/22/17 [Rx] Patient Handouts: Delivery, Care After, Home Care Instructions for Mom , Care After Delivery Referrals: Robles Andres MD [Primary Care Provider] - (Follow-up in 2 weeks for routine postop check. Follow up with your PCP for continued management of type 2 diabetes within 1-2 weeks.) - Discharge Summary/Plan Comment DC Time >30 min.: No - Patient Data Vitals - Most Recent: Last Vital Signs Temp 36.7 C 08/22/17 03:06 Pulse 103 H 08/22/17 03:06 Resp 18 08/22/17 03:06 BP 115/90 08/22/17 03:06 Pulse Ox 95 08/22/17 03:06 Weight - Most Recent: 129.818 kg I&O - Last 24 hours: Intake & Output 08/21/17 08/22/17 08/22/17 22:59 06:59 14:59 Output Total 900 Balance -900 Lab Results - Last 24 hrs: Laboratory Results - last 24 hr 08/21/17 08/21/17 08/21/17 Range/Units 10:50 13:00 15:23 WBC 10.14 H (3.98-10.04) K/mm3 RBC 3.33 L (3.98-5.22) M/mm3 Hgb 9.2 L (11.2-15.7) gm/L Hct 28.3 L (34.1-44.9) % MCV 85.0 (79.4-94.8) fl MCH 27.6 (25.6-32.2) pg MCHC 32.5 (32.2-35.5) g/dl RDW Std Deviation 41.2 (36.4-46.3) fL Plt Count 247 (182-369) K/mm3 MPV 10.1 (9.4-12.3) fl POC Glucose 136 H 114 H (70-105) mg/dL 08/21/17 08/22/17 Range/Units 21:21 05:27 WBC (3.98-10.04) K/mm3 RBC (3.98-5.22) M/mm3 Hgb (11.2-15.7) gm/L Hct (34.1-44.9) % MCV (79.4-94.8) fl MCH (25.6-32.2) pg MCHC (32.2-35.5) g/dl RDW Std Deviation (36.4-46.3) fL Plt Count (182-369) K/mm3 MPV (9.4-12.3) fl POC Glucose 162 H 109 H (70-105) mg/dL Med Orders - Current: Current Medications Diphenhydramine HCl (Benadryl) 25 mg IVPUSH Q6H PRN PRN Reason: Itching or Nausea Docusate Sodium (Colace) 100 mg PO Q12H PRN PRN Reason: Constipation Emollient Ointment (Lansinoh Hpa) 0 gm TOP ASDIRECTED PRN PRN Reason: Sore Nipples Ephedrine Sulfate (Ephedrine Sulfate) 5 mg IVPUSH SEECOMMENT PRN PRN Reason: Other Ibuprofen (Motrin) 800 mg PO Q8H JOSELIN Last Admin: 08/22/17 08:12 Dose: 800 mg Insulin Detemir (Levemir) 12 unit SUBCUT BEDTIME [facility] Last Admin: 08/21/17 21:30 Dose: 12 units Naloxone HCl (Narcan) 0.1 mg IVPUSH SEECOMMENT PRN PRN Reason: Respiratory Depression Oxycodone/Acetaminophen (Percocet 325-5 Mg) 2 tab PO Q4H PRN PRN Reason: Pain (moderate 4-6) Last Admin: 08/22/17 04:39 Dose: 2 tab Prenat Multivit/[place]/Iron/Folic Ac ( Plus Iron) 1 each PO DAILY [facility] Last Admin: 08/22/17 08:11 Dose: 1 each Simethicone (Simethicone) 80 mg PO PCBED [facility] Last Admin: 08/22/17 08:11 Dose: 80 mg Discontinued Medications Bupivacaine HCl (Marcaine 0.5%) Confirm Administered Dose 30 ml .ROUTE .STK-MED ONE Stop: 08/20/17 17:40 Last Admin: 08/20/17 18:14 Dose: 20 ml Cefazolin Sodium (Ancef) Confirm Administered Dose 3 gm .ROUTE .STK-MED ONE Stop: 08/20/17 17:50 Citric Acid/Sodium Citrate (Bicitra Solution) Confirm Administered Dose 30 ml .ROUTE .STK-MED ONE Stop: 08/20/17 17:54 Last Admin: 08/20/17 17:54 Dose: 30 ml Diphenhydramine HCl (Benadryl) 25 mg IVPUSH Q6H PRN PRN Reason: Pruritis Diphenhydramine HCl (Benadryl) 25 mg IVPUSH Q6H PRN PRN Reason: Pruritis Ephedrine Sulfate (Ephedrine Sulfate) 5 mg IVPUSH ASDIRECTED PRN PRN Reason: Hypotension Fentanyl (Sublimaze) 100 mcg EPIDUR ONETIME PRN PRN Reason: Pain Last Admin: 08/20/17 08:52 Dose: 100 mcg Fentanyl (Sublimaze) 50 mcg IVPUSH Q5M PRN PRN Reason: Pain Fentanyl/Bupivacaine HCl (Fentanyl/Bupivacaine/Ns 2 Mcg-0.125% 100 Ml) 100 ml EPIDUR ASDIRECTED [facility] Last Admin: 08/20/17 16:25 Dose: 100 ml Hydroxyzine HCl (Atarax) 50 mg PO ONETIME ONE Stop: 08/19/17 21:34 Last Admin: 08/19/17 22:15 Dose: 50 mg Hydroxyzine HCl (Atarax) 50 mg PO ONETIME ONE Stop: 08/19/17 21:46 Last Admin: 08/19/17 21:51 Dose: Not Given Insulin Human Regular 100 unit (/ Sodium Chloride) 100 mls @ 12.9 mls/hr IV TITRATE JOSELIN; 0.1 UNITS/KG/HR PRN Reason: Protocol Last Titration: 08/20/17 17:16 Dose: 0 units/kg/hr, 0.5 mls/hr Lactated Ringer's (Ringers, Lactated) 1,000 mls @ 40 mls/hr IV ASDIRECTED JOSELIN Last Admin: 08/20/17 11:54 Dose: 40 mls/hr Lactated Ringer's (Ringers, Lactated) 1,000 mls @ 999 mls/hr IV .BOLUS ONE Stop: 08/19/17 09:00 Last Admin: 08/20/17 09:11 Dose: 999 mls/hr Oxytocin/Lactated Ringer's (Pitocin In Lr 10 Units/1,000 Ml) 10 unit in 1,000 mls @ 12 mls/hr IV TITRATE JOSELIN; 2 MUNITS/MIN PRN Reason: Protocol Last Titration: 08/20/17 13:29 Dose: 20 munits/min, 120 mls/hr Sodium Chloride (Normal Saline) Confirm Administered Dose 1,000 mls @ as directed .ROUTE .STK-MED ONE Stop: 08/19/17 08:31 Last Admin: 08/19/17 08:53 Dose: Not Given Sodium Chloride (Normal Saline) 1,000 mls @ 100 mls/hr IV ASDIRECTED JOSELIN Last Admin: 08/20/17 14:38 Dose: 100 mls/hr Oxytocin 20 unit/ Lactated (Ringer's) 1,002 mls @ 30.06 mls/hr IV TITRATE JOSELIN; 10 MUNITS/MIN PRN Reason: Protocol Oxytocin/Lactated Ringer's (Pitocin In Lr 20 Units/1,000 Ml) 20 unit in 1,000 mls @ 66 mls/hr IV TITRATE JOSELIN; 22 MUNITS/MIN PRN Reason: Protocol Last Admin: 08/20/17 14:55 Dose: 30 mls/hr Dextrose/Lactated Ringer's (Dextrose 5%-Lactated Ringers) 1,000 mls @ 125 mls/ hr IV ASDIRECTED [facility] Stop: 08/21/17 04:20 Last Admin: 08/21/17 00:51 Dose: 125 mls/hr Ibuprofen (Motrin) 800 mg PO Q8H [facility] Last Admin: 08/21/17 09:24 Dose: Not Given Ketorolac Tromethamine (Toradol) Confirm Administered Dose 30 mg .ROUTE .STK- MED ONE Stop: 08/20/17 18:56 Lidocaine/Epinephrine (Xylocaine-Mpf 2%-Epi 1:200,000) Confirm Administered Dose 20 ml .ROUTE .STK-MED ONE Stop: 08/20/17 17:50 Meperidine HCl (Demerol) 12.5 mg IVPUSH ONETIME PRN PRN Reason: Shivering Metoclopramide HCl (Reglan) Confirm Administered Dose 10 mg .ROUTE .STK-MED ONE Stop: 08/20/17 17:54 Last Admin: 08/20/17 17:54 Dose: 10 mg Misoprostol (Cytotec) 25 mcg VAG Q3H [facility] Stop: 08/19/17 14:01 Last Admin: 08/19/17 15:01 Dose: 25 mcg Morphine Sulfate (Duramorph Pf) Confirm Administered Dose 1 mg .ROUTE .STK-MED ONE Stop: 08/20/17 18:41 Nalbuphine HCl (Nubain) 10 mg IVPUSH Q2H PRN PRN Reason: Pain Ondansetron HCl (Zofran) 4 mg IVPUSH Q4H PRN PRN Reason: Nausea Ondansetron HCl (Zofran) 4 mg IVPUSH ONETIME PRN PRN Reason: Nausea/Vomiting Ondansetron HCl (Zofran) Confirm Administered Dose 4 mg .ROUTE .STK-MED ONE Stop: 08/20/17 17:50 Ondansetron HCl (Zofran) 4 mg IVPUSH ONETIME PRN PRN Reason: Nausea/Vomiting Oxytocin (Pitocin) Confirm Administered Dose 20 unit .ROUTE .STK-MED ONE Stop: 08/20/17 14:20 Last Admin: 08/20/17 21:47 Dose: Not Given Oxytocin (Pitocin) Confirm Administered Dose 20 unit .ROUTE .STK-MED ONE Stop: 08/20/17 17:50 Sodium Bicarbonate (Sodium Bicarbonate 8.4%) Confirm Administered Dose 50 meq .ROUTE .STK-MED ONE Stop: 08/20/17 17:50 Sodium Chloride (Saline Flush) 10 ml FLUSH ASDIRECTED PRN PRN Reason: Keep Vein Open *Q Meaningful Use (DIS) - VTE *Q VTE Criteria *Q: - Stroke *Q Stroke Criteria *Q: - AMI *Q AMI Criteria *Q:
--- NOTE | 2017-08-23 08:17 | PCM48HPAN ---
Post Anesthesia Note - EVALUATION WITHIN 48HRS OF ANESTHETIC Vital Signs in Normal Range: Yes Patient Participated in Evaluation: Yes Respiratory Function Stable: Yes Airway Patent: Yes Cardiovascular Function Stable: Yes Hydration Status Stable: Yes Pain Control Satisfactory: Yes Nausea and Vomiting Control Satisfactory: Yes Mental Status Recovered: Yes
== END 2017-08-22 09:08 | disposition home or self-care (01) | DRG 765 ==
LOC: UNDOADMOB 06:31 → JD.OB 06:31 → INTOOBSV 18:18 → OBSVTOIN 18:18 → JD.OB 08-20 18:18 → OBSVTOIN 08-20 18:18 → UNDODISIN 08-22 09:08
PROVIDERS: ADMIT Obstetrics & Gynecology; ATTEND Obstetrics & Gynecology
PROC: 10D00Z1 Extraction of Products of Conception, Low, Open Approach (ICD-10-PCS; principal; 2017-08-19)
DX: O32.4XX0 Maternal care for high head at term, not applicable or unspecified (principal); O24.12 Pre-existing type 2 diabetes mellitus, in childbirth; E11.9 Type 2 diabetes mellitus without complications; Z3A.38 38 weeks gestation of pregnancy; Z37.0 Single live birth; Z79.4 Long term (current) use of insulin
CPT/HCPCS: 01967; 01968; 36415; 51702; 82962; 85025; 85027; 86850; 86900; 86901; 94762; A9270-GY; J0690; J1885; J2274; J2405; J2590; J2765; J3010; J7040; J7042; J7120

== ENCOUNTER 2018-10-23 23:52 | Emergency (ER) | payer MEDICAID ==
[2018-10-24] MEDS ORDERED: Ondansetron 4 MG Tab.DIS PO ONE (00:16)
--- NOTE | 2018-10-24 00:24 | EDM.PDOC ---
ED HPI GENERAL MEDICAL PROBLEM - General Chief Complaint: Gastrointestinal Problem Stated Complaint: POSSIBLE FLU Time Seen by Provider: 10/24/18 00:01 Source of Information: Reports: Patient History Limitations: Reports: No Limitations - History of Present Illness INITIAL COMMENTS - FREE TEXT/NARRATIVE: The patient presents with intermittent abdominal pain nausea and vomiting. She has no fever, chills, cough or runny nose. She has no documented fever but she has some chills. She has no dysuria. She is not . She took a test yesterday. She was exposed to influenza and he child also has symptoms. Onset: Gradual Duration: Day(s): Location: Reports: Abdomen Quality: Reports: Ache Severity: Mild Improves with: Reports: None Worsens with: Reports: None Associated Symptoms: Reports: Fever/Chills, Nausea/Vomiting. Denies: Cough, Headaches, Loss of Appetite, Shortness of Breath Abdomen Pain Score (Numeric/FACES): 5 - Related Data Allergies Allergy/AdvReac Type Severity Reaction Status Date / Time oranges Allergy Rash Uncoded 06/27/18 13:28 Home Meds: Home Meds Ondansetron [Zofran ODT] 4 mg PO Q6H PRN #20 tab.dis 10/24/18 [Rx] Past Medical History - Past Health History Medical/Surgical History: Denies Medical/Surgical History HEENT History: Reports: Impaired Vision Other HEENT History: wears eyeglasses Cardiovascular History: Reports: None Respiratory History: Reports: Bronchitis, Recurrent Gastrointestinal History: Reports: GERD Other Gastrointestinal History: GERD in . [employer] History: Reports: , Spontaneous Musculoskeletal History: Reports: None Neurological History: Reports: None Psychiatric History: Reports: None Endocrine/Metabolic History: Reports: Diabetes, Type II, Other (See Below) Other Endocrine/Metabolic History: gestational DM Hematologic History: Reports: None Immunologic History: Reports: None Oncologic (Cancer) History: Reports: None Dermatologic History: Reports: None - Infectious Disease History Infectious Disease History: Reports: Chicken Pox - Past Surgical History Head Surgeries/Procedures: Reports: None Respiratory Surgical History: Reports: None GI Surgical History: Reports: Cholecystectomy Female Surgical History: Reports: Section Endocrine Surgical History: Reports: None Neurological Surgical History: Reports: None Musculoskeletal Surgical History: Reports: None Oncologic Surgical History: Reports: None Dermatological Surgical History: Reports: None Social & Family History - Family History Family Medical History: Noncontributory - Tobacco Use Smoking Status *Q: Never Smoker - Caffeine Use Caffeine Use: Reports: None - Recreational Drug Use Recreational Drug Use: No ED ROS GENERAL - Review of Systems Review Of Systems: See Below Constitutional: Reports: Chills. Denies: Fever HEENT: Reports: No Symptoms Respiratory: Reports: No Symptoms Cardiovascular: Reports: No Symptoms Endocrine: Reports: No Symptoms GI/Abdominal: Reports: Abdominal Pain, Nausea, Vomiting. Denies: Diarrhea : Reports: No Symptoms Musculoskeletal: Reports: No Symptoms ED EXAM, GI/ABD - Physical Exam Exam: See Below Exam Limited By: No Limitations General Appearance: Alert, No Apparent Distress Ears: Normal External Exam Nose: Normal Inspection Head: Atraumatic, Normocephalic Neck: Normal Inspection Respiratory/Chest: No Respiratory Distress, Lungs Clear, Normal Breath Sounds Cardiovascular: Regular Rate, Rhythm, No Edema, No Murmur GI/Abdominal Exam: Soft, Non-Tender, No Organomegaly, No Mass Back Exam: Normal Inspection Extremities: Normal Inspection Neurological: Alert, Oriented, No Motor/Sensory Deficits Course - Vital Signs Last Recorded V/S: Last Vital Signs Temp 97.4 F 10/24/18 00:03 Pulse 77 10/24/18 00:03 Resp 20 10/24/18 00:03 BP 141/74 H 10/24/18 00:03 Pulse Ox 99 10/24/18 00:03 - Orders/Labs/Meds Meds: Medications Discontinued Medications Generic Name Dose Route Start Last Admin Trade Name Awilda PRN Reason Stop Dose Admin Ondansetron HCl 4 mg 10/24/18 00:16 10/24/18 00:26 Zofran Odt PO 10/24/18 00:17 4 mg ONETIME ONE Administration - Re-Assessments/Exams Free Text/Narrative Re-Assessment/Exam: 10/24/18 00:23 I ordered an influenza and zofran 4mg ODT PO. 10/24/18 01:32 Her influenza is negative. I will discharge her home. Departure - Departure Time of Disposition: 01:35 Disposition: Home, Self-Care 01 Condition: Good Clinical Impression: Gastroenteritis - Discharge Information *PRESCRIPTION DRUG MONITORING PROGRAM REVIEWED*: Not Applicable *COPY OF PRESCRIPTION DRUG MONITORING REPORT IN PATIENT AVELINO: Not Applicable Prescriptions: Ondansetron [Zofran ODT] 4 mg PO Q6H PRN #20 tab.dis PRN Reason: Nausea\vomiting Referrals: PCP,None [Primary Care Provider] - Forms: ED Department Discharge Additional Instructions: Drink plenty of fluids. Take the zofran every 6 hours as needed for nausea and vomiting. Please return if you are worse.
== END 2018-10-24 01:45 | disposition home or self-care (01) ==
LOC: JD.ED 23:52
DX: K52.9 Noninfective gastroenteritis and colitis, unspecified (principal); E11.9 Type 2 diabetes mellitus without complications; Z91.018 Allergy to other foods
CPT/HCPCS: 87804; 99284; A9270; 99283

== ENCOUNTER 2021-08-27 12:24 | Emergency (ER) | payer MEDICAID ==
--- NOTE | 2021-08-27 13:40 | EDM.PDOC ---
ED HPI GENERAL MEDICAL PROBLEM - General Chief Complaint: General Stated Complaint: SORE THROAT NAUSEA HEADACHE Time Seen by Provider: 08/27/21 12:58 Source of Information: Reports: Patient, RN Notes Reviewed History Limitations: Reports: No Limitations - History of Present Illness INITIAL COMMENTS - FREE TEXT/NARRATIVE: Patient is a 31-year-old female who presents to the ER for her fever, sore throat and body aches. Patient states she was exposed to someone with influenza A 2 days ago, and she has been sick ever since. Been using Tylenol and ibuprofen every 6 hours as needed for ongoing management. Patient states that the whole house is sick. She is not having any nausea or vomiting or any sort of diarrhea. No major cough or shortness of breath. States she is a fairly healthy person otherwise. - Related Data Allergies Allergy/AdvReac Type Severity Reaction Status Date / Time oranges Allergy Rash Uncoded 08/27/21 13:21 Home Meds: Home Meds metFORMIN [Glucophage] 500 mg PO BID 08/27/21 [History] Past Medical History HEENT History: Reports: Impaired Vision Other HEENT History: wears eyeglasses Respiratory History: Reports: Bronchitis, Recurrent Gastrointestinal History: Reports: GERD Other Gastrointestinal History: GERD in . [employer] History: Reports: , Spontaneous Endocrine/Metabolic History: Reports: Diabetes, Type II, Other (See Below) Other Endocrine/Metabolic History: gestational DM - Infectious Disease History Infectious Disease History: Reports: Chicken Pox - Past Surgical History GI Surgical History: Reports: Cholecystectomy Female Surgical History: Reports: Section Social & Family History - Family History Family Medical History: No Pertinent Family History - Tobacco Use Tobacco Use Status *Q: Never Tobacco User - Caffeine Use Caffeine Use: Reports: None - Recreational Drug Use Recreational Drug Use: No ED ROS GENERAL - Review of Systems Review Of Systems: Comprehensive ROS is negative, except as noted in HPI. ED EXAM, GENERAL - Physical Exam Exam: See Below Exam Limited By: No Limitations General Appearance: Alert, WD/WN, No Apparent Distress Throat/Mouth: Normal Inspection, Normal Lips, Normal Teeth, Normal Gums, Normal Oropharynx, Normal Voice, No Airway Compromise Respiratory/Chest: No Respiratory Distress, Lungs Clear, Normal Breath Sounds, No Accessory Muscle Use, Chest Non-Tender Cardiovascular: Normal Peripheral Pulses, Regular Rate, Rhythm, No Edema Extremities: Normal Inspection, Normal Capillary Refill Neurological: Alert, Oriented, Normal Cognition, No Motor/Sensory Deficits Psychiatric: Normal Affect, Normal Mood Skin Exam: Warm, Dry, Intact, Normal Color, No Rash Course - Vital Signs Last Recorded V/S: Last Vital Signs Temp 97.4 F 08/27/21 13:19 Pulse 96 08/27/21 13:19 Resp 20 08/27/21 13:19 BP 115/87 08/27/21 13:27 Pulse Ox 99 08/27/21 13:19 - Orders/Labs/Meds Labs: Laboratory Tests 08/27/21 Range/Units 13:32 Influenza Type A RNA Negative (NEGATIVE) RSV RNA ([facility]) Negative (NEGATIVE) Influenza Type B RNA Negative (NEGATIVE) SARS-CoV-2 RNA ([facility]) Negative (NEGATIVE) - Re-Assessments/Exams Free Text/Narrative Re-Assessment/Exam: 08/27/21 13:39 Patient presents to the ER for the evaluation of her ongoing illness. COVID/flu/RSV swab will be obtained for further management. 08/27/21 15:02 Patient swabs came back negative however her sons swab came back positive for influenza A, likely that the patient is suffering from influenza A due to symptoms. We will treat her as such. Patient refused Tamiflu. Departure - Departure Time of Disposition: 15:03 Disposition: Home, Self-Care 01 Condition: Good Clinical Impression: Influenza A - Discharge Information *PRESCRIPTION DRUG MONITORING PROGRAM REVIEWED*: No *COPY OF PRESCRIPTION DRUG MONITORING REPORT IN PATIENT AVELNIO: No Instructions: Influenza, Adult, [id number] Referrals: Lory Colbert PA-C [Primary Care Provider] - Forms: ED Department Discharge, ED Return to Work/School Form Additional Instructions: You were evaluated in the ED for your fever and ongoing respiratory complaints. Your swabs were negative for influenza/COVID/RSV however you have been clinically diagnosed with influenza A. Please try to limit their exposure to others until you are 24 hours fever free. You may take 500 mg Tylenol or 600 mg ibuprofen every 6 hours as needed for general aches/fever. Please encourage fluid intake as well as a bland diet until you can tolerate normal foods. Please return to the ED if their symptoms should change or worsen. Sepsis Event Note (ED) - Evaluation Sepsis Screening Result: No Definite Risk - Focused Exam Vital Signs: Vital Signs Temp Pulse Resp BP Pulse Ox 08/27/21 13:27 115/87 08/27/21 13:19 97.4 F 96 20 99
[2021-08-27 14:29] LABS: CORONAVIRUS COVID-19 NAA NEGATIVE (NEGATIVE)
== END 2021-08-27 15:34 | disposition home or self-care (01) ==
LOC: JD.ED 12:24
DX: J10.1 Influenza due to other identified influenza virus with other respiratory manifestations (principal); E11.9 Type 2 diabetes mellitus without complications; Z91.018 Allergy to other foods; Z79.84 Long term (current) use of oral hypoglycemic drugs; Z20.822 Contact with and (suspected) exposure to COVID-19
CPT/HCPCS: 0241U; 99283

== ENCOUNTER 2022-05-08 19:30 | Emergency (ER) | payer MEDICAID ==
[2022-05-08] MEDS ORDERED: Pantoprazole 40 MG Vial IVPUSH ONE (21:56)
[2022-05-08 22:34] LABS: ESTIMATED GFR 100 mL/min (>60)
[2022-05-08] MEDS ORDERED: Sodium Chloride 0.9% 1,000 ML IV SCH (23:45)
[2022-05-08] MEDS ORDERED: Ondansetron 4 MG/2 ML SDV IVPUSH ONE (23:57)
== END 2022-05-09 01:14 | disposition home or self-care (01) ==
LOC: JD.ED 19:30
DX: R10.13 Epigastric pain (principal); K92.0 Hematemesis; Z91.018 Allergy to other foods; E11.9 Type 2 diabetes mellitus without complications; F17.210 Nicotine dependence, cigarettes, uncomplicated; Z79.84 Long term (current) use of oral hypoglycemic drugs
CPT/HCPCS: 36415; 71045; 80053; 81025; 83690; 84484; 85007; 85027; 85610; 85730; 86850; 86900; 86901; 93005; 96361; 96374; 96375; 99284; C9113; J2405; J7030; 93010

== ENCOUNTER 2024-03-14 17:02 | Emergency (ER) | payer MEDICAID ==
[2024-03-14] MEDS ORDERED: Sodium Chloride 0.9% 10 ML Syringe FLUSH PRN (17:47)
[2024-03-14 18:23] LABS: BASOPHILS PERCENT AUTO 0.3 % (0.0-1.0); EOSINOPHILS ABSOLUTE AUTO 0.5 K/mm3 (0.0-0.4); EOSINOPHILS PERCENT AUTO 3.7 % (0.0-6.0); HEMATOCRIT 38.7 % (37.0-47.0); HEMOGLOBIN 12.8 gm/dl (12.0-16.0); IMMATURE GRAN ABSOLUTE AUTO 0.06 K/mm3 (0.00-0.05); IMMATURE GRAN PERCENT AUTO 0.5 % (0.0-0.4); LYMPHOCYTES ABSOLUTE AUTO 1.8 K/mm3 (1.0-4.8); LYMPHOCYTES PERCENT AUTO 14.5 % (24.0-44.0); MEAN CORPUSCULAR HEMOGLOBIN 27.8 pg (28.0-32.0); MEAN CORPUSCULAR HGB CONC 33.1 g/dl (32.0-36.0); MEAN CORPUSCULAR VOLUME 84.1 fl (83.0-99.0); MEAN PLATELET VOLUME 10.3 fl (9.4-12.3); PLATELET COUNT,PLT 287 K/mm3 (150-400); WHITE BLOOD CELL COUNT,WBC 12.27 K/mm3 (3.9-11.3)
[2024-03-14 18:45] LABS: ANION GAP 15.8 (5-15); BILIRUBIN TOTAL 0.6 mg/dL (0.2-1.0); BUN/CREATININE RATIO 12.9 (14-18); CALCIUM 8.8 mg/dL (8.5-10.1); CREATININE 0.7 mg/dL (0.55-1.02); EST CRCL DRUG DOSING (CG) 118.35 mL/min; POTASSIUM,K 3.8 mEq/L (3.5-5.1); PROTEIN TOTAL,TP 7.1 g/dl (6.4-8.2)
[2024-03-14] MEDS: Sodium Chloride 0.9% 10 ML Syringe FLUSH ONE (19:13)
[2024-03-14] MEDS: Iopamidol 612 MG/ML 100 ML Bottle IVPUSH ONE (19:13)
[2024-03-14 19:18] LABS: A/G RATIO 0.8 (1-2); ALBUMIN 3.1 g/dl (3.4-5.0)
== END 2024-03-14 19:53 | disposition home or self-care (01) ==
LOC: JD.ED 17:02
DX: K61.1 Rectal abscess (principal); E11.9 Type 2 diabetes mellitus without complications; F17.210 Nicotine dependence, cigarettes, uncomplicated; Z79.84 Long term (current) use of oral hypoglycemic drugs; Z91.018 Allergy to other foods
CPT/HCPCS: 36415; 72193; 80053; 84703; 85025; 99284; J3490; Q9967

== ENCOUNTER 2024-03-16 09:55 | Day surgery (SDC) | payer MEDICAID ==
[2024-03-16] MEDS ORDERED: fentaNYL 250 MCG/5 ML SDV ONE (10:11)
[2024-03-16] MEDS ORDERED: Propofol 200 MG/20 ML SDV ONE (10:11)
[2024-03-16] MEDS ORDERED: Midazolam 1 MG/ML 2 ML SDV ONE (10:12)
[2024-03-16] MEDS ORDERED: ceFAZolin 2 GM Vial ONE (10:14)
[2024-03-16] MEDS ORDERED: Rocuronium 50 MG/5 ML Vial ONE ×2 (10:20→12:15)
[2024-03-16] MEDS ORDERED: Ondansetron 4 MG/2 ML SDV ONE (10:20)
[2024-03-16] MEDS: Lactated Ringers 1,000 ML IV SCH (10:30)
[2024-03-16] MEDS ORDERED: HYDROmorphone 0.5 MG/0.5 ML Syringe ONE (11:04)
[2024-03-16] MEDS ORDERED: Sodium Chloride 0.9% 10 ML Syringe FLUSH PRN (11:12)
[2024-03-16] MEDS ORDERED: Ketorolac 30 MG/ML SDV ONE (11:30)
[2024-03-16] MEDS ORDERED: Sugammadex Sodium 200 MG/2 ML VIAL IV ONE (11:30)
[2024-03-16] MEDS ORDERED: Lidocaine 2% 20 ML MDV ONE (11:32)
[2024-03-16] MEDS ORDERED: Ropivacaine 0.5% 5 MG/ML 30 ML SDV ONE (11:32)
[2024-03-16] MEDS ORDERED: Lactated Ringers 1,000 ML IV ONE (12:15)
[2024-03-16] MEDS: Haloperidol Lactate 5 MG/ML SDV IVPUSH ONE (13:22)
[2024-03-16] MEDS ORDERED: Sodium Chloride 0.9% 10 ML Syringe FLUSH SCH (21:00)
== END 2024-03-16 14:03 | disposition home or self-care (01) ==
LOC: JD.SDS 09:55
PROVIDERS: ATTEND Family Medicine
DX: K61.1 Rectal abscess (principal); E11.9 Type 2 diabetes mellitus without complications; K21.9 Gastro-esophageal reflux disease without esophagitis; F17.210 Nicotine dependence, cigarettes, uncomplicated; Z79.84 Long term (current) use of oral hypoglycemic drugs; Z79.899 Other long term (current) drug therapy; Z88.8 Allergy status to other drugs, medicaments and biological substances
CPT/HCPCS: 46040; J0690; J1170; J1630; J1885; J2001; J2250; J2405; J2704; J2795; J3010; J3490; J7120; 87070; 87081; 87205

== ENCOUNTER 2024-03-19 15:52 | Emergency (ER) | payer MEDICAID ==
[2024-03-19] MEDS: Amoxicillin/Clavulanate K 875-125 MG Tab PO ONE (16:36)
== END 2024-03-19 16:36 | disposition home or self-care (01) ==
LOC: JD.ED 15:52
DX: Z48.816 Encounter for surgical aftercare following surgery on the genitourinary system (principal)
CPT/HCPCS: 99283; A9270-GY

== ENCOUNTER 2024-08-30 21:59 | Emergency (ER) | payer MEDICAID ==
[2024-08-30 23:43] LABS: BASOPHILS PERCENT AUTO 0.3 % (0.0-1.0); EOSINOPHILS ABSOLUTE AUTO 0.3 K/mm3 (0.0-0.4); EOSINOPHILS PERCENT AUTO 4.8 % (0.0-6.0); HEMATOCRIT 41.9 % (37.0-47.0); HEMOGLOBIN 13.5 gm/dl (12.0-16.0); IMMATURE GRAN ABSOLUTE AUTO 0.02 K/mm3 (0.00-0.05); IMMATURE GRAN PERCENT AUTO 0.3 % (0.0-0.4); LYMPHOCYTES ABSOLUTE AUTO 0.7 K/mm3 (1.0-4.8); LYMPHOCYTES PERCENT AUTO 11.5 % (24.0-44.0); MEAN CORPUSCULAR HEMOGLOBIN 26.9 pg (28.0-32.0); MEAN CORPUSCULAR HGB CONC 32.2 g/dl (32.0-36.0); MEAN CORPUSCULAR VOLUME 83.5 fl (83.0-99.0); MEAN PLATELET VOLUME 10.3 fl (9.4-12.3); MONOCYTES ABSOLUTE AUTO 0.5 K/mm3 (0.0-0.8); MONOCYTES PERCENT AUTO 7.6 % (0.0-8.0); NEUTROPHILS ABSOLUTE AUTO 4.7 K/mm3 (1.8-7.7); NEUTROPHILS PERCENT AUTO 75.5 % (41.0-71.0); PLATELET COUNT,PLT 266 K/mm3 (150-400); RED BLOOD CELL COUNT 5.02 M/mm3 (4.10-5.30)
[2024-08-31 00:16] LABS: A/G RATIO 0.9 (1-2); ALANINE AMINOTRANSFERASE,ALT 50 U/L (14-59); ALBUMIN 3.4 g/dl (3.4-5.0); ALKALINE PHOSPHATASE 95 U/L (46-116); ANION GAP 14.9 (5-15); ASPARTATE AMNIOTRANSFERASE,AST 28 U/L (15-37); BILIRUBIN TOTAL 0.4 mg/dL (0.2-1.0); BLOOD UREA NITROGEN,BUN 11 mg/dL (7-18); BUN/CREATININE RATIO 12.2 (14-18); CALCIUM 8.5 mg/dL (8.5-10.1); CARBON DIOXIDE,CO2 25 mEq/L (21-32); CHLORIDE,CL 99 mEq/L (98-107); CREATININE 0.9 mg/dL (0.55-1.02); EST CRCL DRUG DOSING (CG) 92.05 mL/min; ESTIMATED GFR 86 mL/min (>60); POTASSIUM,K 3.9 mEq/L (3.5-5.1); PROTEIN TOTAL,TP 7.1 g/dl (6.4-8.2); SODIUM,NA 135 mEq/L (136-145)
[2024-08-31 00:21] LABS: GLUCOSE RANDOM 426 mg/dL (70-99); TROPONIN I HIGH SENSITIVITY < 4 pg/mL (<=51)
[2024-08-31] MEDS: Sodium Chloride 0.9% 1,000 ML IV ONE ×2 (01:15→02:26)
[2024-08-31] MEDS: Insulin Regular, Human 100 Units/ML 10 ML Vial IV ONE (01:36)
== END 2024-08-31 03:23 | disposition home or self-care (01) ==
LOC: JD.ED 21:59
DX: J06.9 Acute upper respiratory infection, unspecified (principal); R07.9 Chest pain, unspecified; E11.65 Type 2 diabetes mellitus with hyperglycemia; F17.210 Nicotine dependence, cigarettes, uncomplicated; Z91.018 Allergy to other foods; Z79.84 Long term (current) use of oral hypoglycemic drugs; Z79.899 Other long term (current) drug therapy; Z90.49 Acquired absence of other specified parts of digestive tract
CPT/HCPCS: 36415; 71045; 80053; 82947; 84484; 84703; 85025; 87428; 93005; 96360; 96361; 99285; J1815; J7030